=== PATIENT | female | born 1960 | race Hispanic/Latino ===

== ENCOUNTER 2018-02-19 09:50 | Outpatient (CLI) | payer BC ==
--- NOTE | 2018-02-20 09:25 | Magnetic Resonance Report ---
BILATERAL BREAST MRI WITHOUT AND WITH CONTRAST: 02/19/18 09:50:00 CLINICAL: Newly diagnosed right breast cancer at 2 sites. She underwent ultrasound-guided biopsy of 2 right breast masses at 8 o'clock 6 cm from the nipple and 11 o'clock 8 cm from the nipple. Both biopsies revealed invasive ductal carcinoma, grade 3, ER 97%, SD and 93% and HER 2 positive. She also had a negative left lower inner stereotactic biopsy for calcifications. However, no calcifications were found by pathology. A previous ultrasound also identified additional solid masses in the right breast at 3 o'clock and 7 o'clock which were not biopsied. She has begun neoadjuvant chemotherapy. COMPARISON:12/19/17 bilateral diagnostic , and 01/31/18 bilateral postbiopsy diagnostic mammograms from [facility]. TECHNIQUE: Axial 1.0-mm T1 without, axial high resolution 2.0-mm T2 and axial 1.0-mm dynamic Vibrant high-resolution postcontrast T1 fat saturation sequences on a 1.5 [place] magnet. The examination was performed with an 8 channel dedicated [place] breast coil. Post processing with CAD and subtraction was performed on an [employer] workstation. 18.0 cc of Multihance was injected without incident for the contrast portion of the exam. Consent was obtained prior to the administration of the contrast. FINDINGS: Right: Mild background parenchymal enhancement. Lesion 1 is an irregular enhancing mass at 10 o'clock 9 cm from the nipple measuring 18.5 x 10.7 x 7.4 mm. It contains a biopsy clip and correlates with the lesion described to be at 11 o'clock 8 cm from the nipple by ultrasound. It demonstrates heterogeneous enhancement with mixed kinetics, 497% peak enhancement, 56% type I persistent, 20% type II plateau and 24% type III washout. Lesion 2 correlates with the biopsied lesion at 8 o'clock 6 cm from the nipple. There is a biopsy clip but no mass or suspicious enhancement is identified at the clip. Lesion 3 is an oval slightly irregular enhancing mass at 9 o'clock 9 cm from the nipple measuring 4.4 x 3.1 x 2.9 mm. It demonstrates heterogeneous enhancement with mixed kinetics, 413% peak enhancement, 16% type I persistent, 27% type II plateau and 57% type III washout. Lesions 1 and 3 are surrounded by segmental non-Mass enhancement which spans a approximately 6-8 cm in the AP dimension by approximately 3 cm in the transverse dimension. No other mass or suspicious enhancement of the right breast. Multiple abnormal right axillary lymph nodes with no central fat. The largest lymph node has abnormal morphology with an irregular cortex and measures 2.4 cm. There is an adjacent biopsy clip in the right axilla. Left: Minimal background parenchymal enhancement. No mass or suspicious enhancement. The stereotactic biopsy site is identified at at 8 o'clock approximately 7 cm from the nipple. No mass or suspicious enhancement is identified at the site. No suspicious lymph nodes. IMPRESSION: 1. Multicentric right breast cancer with 2 biopsy proven lesions at 8 o'clock and 11 o'clock and highly suspicious no mass enhancement spanning approximately 8 x 3 cm. Multiple suspicious right axillary lymph nodes and a biopsy proven right axillary randall metastasis.. 2. Fewer right breast masses are identified by MRI than by ultrasound but this may be represent a positive effect of the chemotherapy. 3. Negative left breast and no suspicious left lymph nodes. RIGHT BI-RADS 6 -- Known Cancer LEFT BI-RADS 1 -- Negative
== END 2018-02-19 09:51 | disposition home or self-care (01) ==
LOC: SPVWC 09:50
PROVIDERS: ATTEND Surgery
DX: C50.411 Malignant neoplasm of upper-outer quadrant of right female breast (principal); I10 Essential (primary) hypertension; K21.9 Gastro-esophageal reflux disease without esophagitis; E03.9 Hypothyroidism, unspecified; Z90.710 Acquired absence of both cervix and uterus; Z90.89 Acquired absence of other organs
CPT/HCPCS: A9577; C8908; 77059

== ENCOUNTER 2018-03-25 08:06 | Outpatient (CLI) | payer BC ==
--- NOTE | 2018-03-25 09:01 | Mammography Report ---
LEFT DIGITAL DIAGNOSTIC MAMMOGRAM with CAD: 03/25/18 08:06:00 CLINICAL: Recently diagnosed right breast cancer and status post recent left stereotactic breast biopsy for calcifications. Pathology result was benign but no calcifications identified in the specimen. COMPARISON:12/19/17 mammogram from [facility] FINDINGS: The rest is heterogeneously dense, which may obscure small masses. A lower inner biopsy clip and no residual calcifications at the clip. Mild benign scar at the clip.No mass, architectural distortion or suspicious calcifications. IMPRESSION: No mammographic evidence of malignancy. BI-RADS CATEGORY: 2 - - Benign RECOMMENDATION: Routine mammographic screening. ACR BI-RADS MAMMOGRAPHIC CODES: 0 = Needs additional imaging evaluation; 1 = Negative; 2 = Benign; 3 = Probably benign; 4 = Suspicious; 5 = Malignant; 6 = Known biopsy-proven malignancy COMMENT: 1. Dense breast tissue, i.e., adenosis, fibrocystic changes, etc., may obscure an underlying neoplasm. 2. Approximately 10% of cancers are not detected with mammography. 3. A negative mammography report should not delay biopsy if a clinically suspicious mass is present. COMMENT: Patient follow-up letters are generated by our [employer] application.
== END 2018-03-25 08:07 | disposition home or self-care (01) ==
LOC: SPVWC 08:06
PROVIDERS: ATTEND Surgery
DX: C50.411 Malignant neoplasm of upper-outer quadrant of right female breast (principal); I10 Essential (primary) hypertension; K21.9 Gastro-esophageal reflux disease without esophagitis; E03.9 Hypothyroidism, unspecified; Z90.89 Acquired absence of other organs; Z90.710 Acquired absence of both cervix and uterus

== ENCOUNTER 2018-07-08 08:32 | Outpatient (CLI) | payer BC ==
--- NOTE | 2018-07-08 09:04 | Mammography Report ---
RIGHT DIGITAL DIAGNOSTIC MAMMOGRAM : 07/08/18 08:32:00 CLINICAL: Right breast cancer status post chemotherapy. COMPARISON:12/19/17 FINDINGS: The breast is heterogeneously dense, which may obscure small masses. Two outer biopsy clips. No mass, architectural distortion or suspicious calcifications. IMPRESSION: Complete mammographic response to chemotherapy. BI-RADS CATEGORY: 6--Known Cancer ACR BI-RADS MAMMOGRAPHIC CODES: 0 = Needs additional imaging evaluation; 1 = Negative; 2 = Benign; 3 = Probably benign; 4 = Suspicious; 5 = Malignant; 6 = Known biopsy-proven malignancy COMMENT: 1. Dense breast tissue, i.e., adenosis, fibrocystic changes, etc., may obscure an underlying neoplasm. 2. Approximately 10% of cancers are not detected with mammography. 3. A negative mammography report should not delay biopsy if a clinically suspicious mass is present. COMMENT: Patient follow-up letters are generated by our [employer] application.
== END 2018-07-08 08:33 | disposition home or self-care (01) ==
LOC: SPVWC 08:32
PROVIDERS: ATTEND Surgery
DX: C50.411 Malignant neoplasm of upper-outer quadrant of right female breast (principal); I10 Essential (primary) hypertension; E03.9 Hypothyroidism, unspecified; K21.9 Gastro-esophageal reflux disease without esophagitis; Z90.710 Acquired absence of both cervix and uterus; Z90.89 Acquired absence of other organs

== ENCOUNTER 2018-12-19 09:22 | Outpatient (CLI) | payer BC ==
[2018-12-19] MEDS ORDERED: XYLOCAINE TOPICAL 4% TP ONE (10:00)
== END 2018-12-19 09:23 | disposition home or self-care (01) ==
LOC: WOUND 09:22
PROVIDERS: ATTEND Surgery
DX: T81.89XA Other complications of procedures, not elsewhere classified, initial encounter (principal); C50.912 Malignant neoplasm of unspecified site of left female breast; K21.9 Gastro-esophageal reflux disease without esophagitis; H91.90 Unspecified hearing loss, unspecified ear; E07.9 Disorder of thyroid, unspecified; Z90.710 Acquired absence of both cervix and uterus; Y83.8 Other surgical procedures as the cause of abnormal reaction of the patient, or of later complication, without mention of misadventure at the time of the procedure; Y92.89 Other specified places as the place of occurrence of the external cause
CPT/HCPCS: 11042; G0463; 99214

== ENCOUNTER 2018-12-26 08:56 | Outpatient (CLI) | payer BC | END 2018-12-26 08:57 | disposition home or self-care (01) | LOC: WOUND 08:56 | PROVIDERS: ATTEND Surgery | DX: T81.89XD Other complications of procedures, not elsewhere classified, subsequent encounter (principal); C50.912 Malignant neoplasm of unspecified site of left female breast; K21.9 Gastro-esophageal reflux disease without esophagitis; H91.90 Unspecified hearing loss, unspecified ear; E07.9 Disorder of thyroid, unspecified; Z90.710 Acquired absence of both cervix and uterus; Y83.8 Other surgical procedures as the cause of abnormal reaction of the patient, or of later complication, without mention of misadventure at the time of the procedure ==

== ENCOUNTER 2019-01-02 08:51 | Outpatient (CLI) | payer BC ==
[2019-01-02] MEDS ORDERED: XYLOCAINE TOPICAL 4% TP ONE (09:30)
== END 2019-01-02 08:52 | disposition home or self-care (01) ==
LOC: WOUND 08:51
PROVIDERS: ATTEND Surgery
DX: T81.89XD Other complications of procedures, not elsewhere classified, subsequent encounter (principal); C50.912 Malignant neoplasm of unspecified site of left female breast; K21.9 Gastro-esophageal reflux disease without esophagitis; H91.90 Unspecified hearing loss, unspecified ear; E07.9 Disorder of thyroid, unspecified; Z90.710 Acquired absence of both cervix and uterus; Y83.8 Other surgical procedures as the cause of abnormal reaction of the patient, or of later complication, without mention of misadventure at the time of the procedure

== ENCOUNTER 2019-01-09 09:04 | Outpatient (CLI) | payer BC | END 2019-01-09 09:05 | disposition home or self-care (01) | LOC: WOUND 09:04 | PROVIDERS: ATTEND Surgery | DX: T81.89XD Other complications of procedures, not elsewhere classified, subsequent encounter (principal); C50.912 Malignant neoplasm of unspecified site of left female breast; K21.9 Gastro-esophageal reflux disease without esophagitis; H91.90 Unspecified hearing loss, unspecified ear; E07.9 Disorder of thyroid, unspecified; Z90.710 Acquired absence of both cervix and uterus; Y83.8 Other surgical procedures as the cause of abnormal reaction of the patient, or of later complication, without mention of misadventure at the time of the procedure ==

== ENCOUNTER 2019-01-16 07:58 | Outpatient (CLI) | payer BC ==
[2019-01-16] MEDS ORDERED: SILVER NITRATE TP NR (08:30)
[2019-01-16] MEDS ORDERED: XYLOCAINE TOPICAL 4% TP NR (08:30)
[2019-01-16] MEDS ORDERED: XYLOCAINE 1%/ EPI 1:100,000 INFILTRATI NR (09:00)
== END 2019-01-16 07:59 | disposition home or self-care (01) ==
LOC: WOUND 07:58
PROVIDERS: ATTEND Surgery
DX: T81.89XD Other complications of procedures, not elsewhere classified, subsequent encounter (principal); C50.912 Malignant neoplasm of unspecified site of left female breast; K21.9 Gastro-esophageal reflux disease without esophagitis; H91.90 Unspecified hearing loss, unspecified ear; E07.9 Disorder of thyroid, unspecified; Z90.710 Acquired absence of both cervix and uterus; Y83.8 Other surgical procedures as the cause of abnormal reaction of the patient, or of later complication, without mention of misadventure at the time of the procedure
CPT/HCPCS: 10061

== ENCOUNTER 2019-01-23 07:56 | Outpatient (CLI) | payer BC ==
[2019-01-23] MEDS ORDERED: XYLOCAINE TOPICAL 4% TP ONE (08:04)
== END 2019-01-23 07:57 | disposition home or self-care (01) ==
LOC: WOUND 07:56
PROVIDERS: ATTEND Surgery
DX: T81.89XD Other complications of procedures, not elsewhere classified, subsequent encounter (principal); C50.912 Malignant neoplasm of unspecified site of left female breast; K21.9 Gastro-esophageal reflux disease without esophagitis; E07.9 Disorder of thyroid, unspecified; Z90.710 Acquired absence of both cervix and uterus; Y83.8 Other surgical procedures as the cause of abnormal reaction of the patient, or of later complication, without mention of misadventure at the time of the procedure

== ENCOUNTER 2019-01-30 07:54 | Outpatient (CLI) | payer BC ==
[2019-01-30] MEDS ORDERED: XYLOCAINE TOPICAL 4% TP ONE (08:05)
== END 2019-01-30 07:55 | disposition home or self-care (01) ==
LOC: WOUND 07:54
PROVIDERS: ATTEND Surgery
DX: T81.89XD Other complications of procedures, not elsewhere classified, subsequent encounter (principal); C50.912 Malignant neoplasm of unspecified site of left female breast; K21.9 Gastro-esophageal reflux disease without esophagitis; E07.9 Disorder of thyroid, unspecified; Z90.710 Acquired absence of both cervix and uterus; Y83.8 Other surgical procedures as the cause of abnormal reaction of the patient, or of later complication, without mention of misadventure at the time of the procedure

== ENCOUNTER 2019-02-06 07:54 | Outpatient (CLI) | payer BC | END 2019-02-06 07:55 | disposition home or self-care (01) | LOC: WOUND 07:54 | PROVIDERS: ATTEND Surgery | DX: T81.89XD Other complications of procedures, not elsewhere classified, subsequent encounter (principal); C50.912 Malignant neoplasm of unspecified site of left female breast; K21.9 Gastro-esophageal reflux disease without esophagitis; E07.9 Disorder of thyroid, unspecified; Z90.710 Acquired absence of both cervix and uterus; Y83.8 Other surgical procedures as the cause of abnormal reaction of the patient, or of later complication, without mention of misadventure at the time of the procedure ==

== ENCOUNTER 2019-02-20 07:54 | Outpatient (CLI) | payer BC ==
[2019-02-20] MEDS ORDERED: XYLOCAINE TOPICAL 4% TP ONE (07:57)
== END 2019-02-20 07:55 | disposition home or self-care (01) ==
LOC: WOUND 07:54
PROVIDERS: ATTEND Surgery
DX: T81.89XD Other complications of procedures, not elsewhere classified, subsequent encounter (principal); C50.912 Malignant neoplasm of unspecified site of left female breast; K21.9 Gastro-esophageal reflux disease without esophagitis; E07.9 Disorder of thyroid, unspecified; Z90.710 Acquired absence of both cervix and uterus; Y83.8 Other surgical procedures as the cause of abnormal reaction of the patient, or of later complication, without mention of misadventure at the time of the procedure

== ENCOUNTER 2019-02-27 07:50 | Outpatient (CLI) | payer BC | END 2019-02-27 07:51 | disposition home or self-care (01) | LOC: WOUND 07:50 | PROVIDERS: ATTEND Surgery | DX: T81.89XD Other complications of procedures, not elsewhere classified, subsequent encounter (principal); C50.912 Malignant neoplasm of unspecified site of left female breast; K21.9 Gastro-esophageal reflux disease without esophagitis; E07.9 Disorder of thyroid, unspecified; Z90.710 Acquired absence of both cervix and uterus; Y83.8 Other surgical procedures as the cause of abnormal reaction of the patient, or of later complication, without mention of misadventure at the time of the procedure | CPT/HCPCS: 99213; G0463 ==

== ENCOUNTER 2019-03-20 07:58 | Outpatient (CLI) | payer BC | END 2019-03-20 07:59 | disposition home or self-care (01) | LOC: WOUND 07:58 | PROVIDERS: ATTEND Surgery | DX: T81.89XD Other complications of procedures, not elsewhere classified, subsequent encounter (principal); C50.912 Malignant neoplasm of unspecified site of left female breast; L98.492 Non-pressure chronic ulcer of skin of other sites with fat layer exposed; K21.9 Gastro-esophageal reflux disease without esophagitis; E03.9 Hypothyroidism, unspecified; Z90.710 Acquired absence of both cervix and uterus; Y83.8 Other surgical procedures as the cause of abnormal reaction of the patient, or of later complication, without mention of misadventure at the time of the procedure | CPT/HCPCS: 99212; G0463 ==